=== PATIENT | male | born 2000 | race Two or more races ===

== ENCOUNTER 2023-03-06 02:39 | Emergency (ER) | payer MEDICAID, OTHER ==
[~2023-03-06] VITALS: Ht 180.3 cm; Wt 130.9 kg
[2023-03-06 03:58] LABS: Urine Bacteria NONE SEEN /hpf (None Seen); Urine Blood Negative /uL (Negative); Urine Clarity Clear (Clear); Urine Color Yellow (Yellow); Urine Mucus FEW (None Seen); Urine Protein, UAD 1+ (Negative); Urine Specific Gravity 1.037 (1.001-1.035); Urine WBC 1 /hpf (0 - 3)
[2023-03-06 03:59] LABS: Basophils # (auto) 0.1 10 ^3/uL (0-0.2); Eosinophils # (auto) 0.1 10 ^3/uL (0-0.8); Hematocrit 45.5 % (41.0-53.0); Lymphocytes # (auto) 3.7 10 ^3/uL (0.4-5.4); Mean Corpuscular Hemoglobin 27.5 pg (28.0-32.0); Mean Corpuscular Volume 83.3 fL (80.0-100.0); Monocytes # (auto) 0.7 10 ^3/uL (0-1.3); Monocytes % (auto) 7.4 % (0.0-12.0); Neutrophils # (auto) 4.5 10 ^3/uL (1.6-8.6); Neutrophils % (auto) 49.6 % (37.0-80.0); Nucleated Red Blood Cells % 0.1 %; Red Blood Cells 5.46 10^6/uL (4.5-5.90); Red Cell Distribution Width 13.1 % (11.8-14.3)
[2023-03-06 03:59] LABS: Amphetamine Screen, Urine Neg (NEGATIVE); Barbiturate Scree,Urine Neg (NEGATIVE); Benzodiazephine Screen, Urine Neg (NEGATIVE); Cocaine Screen, Urine Neg (NEGATIVE); Opiate Scree,Urine Neg (NEGATIVE)
[2023-03-06 04:00] LABS: Cannabinoid Screen, Urine Neg (NEGATIVE); Phencyclidine Screen, Urine Neg (NEGATIVE)
[2023-03-06 04:11] LABS: Acetaminophen < 2.0 UG/ML (10.0-20.0)
[2023-03-06 04:12] LABS: Alanine Aminotransferase 129 U/L (7-40); Albumin 4.7 g/dL (3.2-4.8); Alkaline Phosphatase 106 U/L (46-116); Anion Gap 7 (5-15); Aspartate Aminotransferase 45 U/L (13-40); BUN/Creatinine Ratio 8.9 (10.0-20.0); Bilirubin, Total 0.5 mg/dL (0.2-1.0); Blood Urea Nitrogen 8 mg/dL (9-23); Calcium 9.4 mg/dL (8.7-10.4); Carbon Dioxide 26 mmol/L (20-30); Chloride 107 mmol/L (98-107); Glucose 104 mg/dL (74-106); Potassium 3.8 mmol/L (3.5-5.1); Sodium 140 mmol/L (136-145); Total Protein 7.5 g/dL (5.7-8.2)
[2023-03-06 04:13] LABS: Salicylate < 3.0 mg/dL (2.8-20.0)
[2023-03-06 05:15] VITALS: RESP 16; O2SAT 95
[2023-03-06 07:19] VITALS: BP 107/70; PULSE 77; TEMP 97.9; O2SAT 95
== END 2023-03-06 10:11 | disposition home or self-care (01) ==
LOC: ER 02:39
DX: R45.851 Suicidal ideations (principal); F32.9 Major depressive disorder, single episode, unspecified; F20.9 Schizophrenia, unspecified; F41.9 Anxiety disorder, unspecified; Z79.899 Other long term (current) drug therapy
CPT/HCPCS: 36415; 80053; 80307; 80329; 81001; 85025

== ENCOUNTER 2024-08-04 01:11 | Emergency (ER) | payer MEDICAID ==
[~2024-08-04] VITALS: Ht 175.3 cm; Wt 127.0 kg
[2024-08-04 01:42] LABS: Basophils # (auto) 0.1 10 ^3/uL (0-0.2); Basophils % (auto) 0.7 % (0.0-2.0); Eosinophils # (auto) 0.1 10 ^3/uL (0-0.8); Eosinophils % (auto) 1.4 % (0.0-7.0); Hematocrit 40.6 % (41.0-53.0); Hemoglobin 14.1 g/dL (13.5-17.5); Lymphocytes # (auto) 3.7 10 ^3/uL (0.4-5.4); Lymphocytes % (auto) 43.3 % (10.0-50.0); Mean Corpuscular Hgb Conc. 34.8 g/dL (32.0-36.0); Mean Corpuscular Volume 83.4 fL (80.0-100.0); Monocytes # (auto) 0.7 10 ^3/uL (0-1.3); Monocytes % (auto) 8.7 % (0.0-12.0); Neutrophils # (auto) 3.9 10 ^3/uL (1.6-8.6); Neutrophils % (auto) 45.9 % (37.0-80.0); Nucleated Red Blood Cells % 0.1 %; Platelet Count (auto) 299 10^3/uL (140-450); Red Blood Cells 4.87 10^6/uL (4.5-5.90); Red Cell Distribution Width 12.9 % (11.8-14.3); White Blood Cell 8.5 10^3/uL (4.4-10.8)
[2024-08-04 01:45] LABS: Chloride 104 mmol/L (98-107); Potassium 3.9 mmol/L (3.5-5.1); Sodium 139 mmol/L (136-145)
[2024-08-04 01:46] LABS: Anion Gap 9 (5-15); Calcium 9.5 mg/dL (8.7-10.4); Carbon Dioxide 26 mmol/L (20-31)
[2024-08-04 01:51] LABS: BUN/Creatinine Ratio 9.2 (10.0-20.0)
[2024-08-04 02:00] VITALS: O2SAT 95
[2024-08-04 02:04] LABS: Acetaminophen < 2.0 UG/ML (10.0-20.0); Blood Alcohol < 3.0 mg/dL (<10); Blood Urea Nitrogen 7 mg/dL (9-23); Glucose 119 mg/dL (74-106); Salicylate < 3.0 mg/dL (-30)
[2024-08-04 02:12] LABS: Urine Bacteria None Seen /hpf (None Seen)
[2024-08-04 02:21] LABS: Urine Blood Negative /uL (Negative); Urine Clarity Clear (Clear); Urine Color Colorless (Yellow); Urine Protein, UAD Negative (Negative); Urine Specific Gravity 1.004 (1.001-1.035); Urine Squamous Epithelial Cell None Seen /hpf (<5); Urine Urobilinogen Normal (Negative); Urine WBC < 1 /HPF (0-3); Urine pH 6.5 (5.0-9.0)
[2024-08-04 02:25] LABS: Amphetamine Screen, Urine Neg (NEGATIVE); Barbiturate Scree,Urine Neg (NEGATIVE); Benzodiazephine Screen, Urine Neg (NEGATIVE); Cannabinoid Screen, Urine Neg (NEGATIVE); Cocaine Screen, Urine Neg (NEGATIVE); Opiate Scree,Urine Neg (NEGATIVE); Phencyclidine Screen, Urine Neg (NEGATIVE)
--- NOTE | 2024-08-04 02:34 | ED.PDOC ---
History of Present Illness HPI Comments 24 year-old, morbidly obese male, with a history of anxiety, Autism Spectrum Disorder. Bipolar Disorder, Major Depressive Disorder, and Schizoaffective Disorder, is [id number]-ambulance for c/o suicidal ideations and attempt, depression, and auditory hallucinations, today. Per EMS report, patient endorses on attempting to end his life by consuming a small amounts of bleach in addition to taking 8 pills of his Valproate medication following recent depressive and auditory hallucination episode onset, this morning. At time of assessment, patient comments on remorse in attempting to end his life prior to calling EMS and endorses on only current c/o of depression and auditory hallucinations, that includes "voices" endorsing him to end his life. He denies any homicidal ideations, visual hallucinations, chest or abdominal pain, shortness of breath, nausea, or vomiting. Chief Complaint: Overdose Time Seen by MD: 01:20 Reviewed Notes: Nurses Notes, Software Project Manager Notes, Medications, Allergies Allergies: Coded Allergies: NO KNOWN ALLERGIES (Unverified , 03/06/23) Information Source: Patient, Emergency Med Personnel Mode of Arrival: EMS Severity: Moderate Timing: Hours Duration: Since onset Prehospital treatment: None Past Medical History PAST MEDICAL HISTORY: Anxiety, Depression Past Medical History (Other): Autism Spectrum Disorder (ASD) Bipolar Disorder Schizoaffective disorder Morbid Obesity Surgical History: Denies all surgeries Family History Family History: Unknown Social History Smoker: Non-Smoker Alcohol: Denies ETOH Use Drugs: Denies Drug Use Lives In: Home All Other Systems: Reviewed and Negative (Comprehensive systems review obtained and negative except for what is stated in the HPI.) Physical Exam General Appearance: No Apparent Distress, Obese HEENT: Normal ENT Inspection, Pharynx Normal, TMs Normal Neck: Full Range of Motion, Non-Tender, Normal, Normal Inspection Respiratory: Chest Non-Tender, Lungs Clear, No Accessory Muscle Use, No Respiratory Distress, Normal Breath Sounds Cardiovascular: No Edema, No JVD, No Murmur, No Gallop, Normal Peripheral Pulses, Regular Rate/Rhythm Breast Exam: Deferred Gastrointestinal: No Organomegaly, Non Tender, No Pulsatile Mass, Normal Bowel Sounds, Soft Genitalia: Deferred Pelvic: Deferred Rectal: Deferred Extremities: No calf tenderness, Normal capillary refill, Normal inspection, Normal range of motion, Non-tender, No pedal edema Musculoskeletal : Apperance: Normal Neurologic: Alert, utility gelatin maker II-XII nml as Tested, No Motor Deficits, Normal Affect, Normal Mood, No Sensory Deficits Cerebellar Function: Normal Reflexes: Normal Skin: Dry, Normal Color, Warm Lymphatic: No Adenopathy Was a procedure done? Was a procedure done?: No Differential Dx Considerations may include: depression, hopelessness, schizoaffective disorder, suicidal, substance overdose X-Ray, Labs, Meds, VS Vital Signs Date Time Temp Pulse Resp B/P (MAP) Pulse Ox O2 Delivery O2 Flow Rate FiO2 08/05/24 08:32 66 18 98 Room Air* 0 21 08/05/24 08:32 97.8 66 18 125/67 (86) 98 97.8 08/04/24 19:55 97.9 74 16 134/83 (100) 97 97.9 08/04/24 19:30 74 18 97 Room Air* 0 21 08/04/24 14:00 103 20 124/79 (94) 93 08/04/24 13:32 102 08/04/24 12:00 95 16 100/66 (77) 94 08/04/24 11:31 86 08/04/24 10:00 86 18 105/68 (80) 95 08/04/24 08:56 84 08/04/24 08:00 90 18 116/81 (93) 08/04/24 07:39 90 17 116/81 (93) 95 08/04/24 07:30 90 18 92 Nasal Cannula* 4 36 08/04/24 07:30 97.6 90 18 116/81 (93) 92 97.6 08/04/24 05:27 92 13 109/75 (86) 93 08/04/24 05:08 91 08/04/24 04:19 93 11 118/85 (96) 96 08/04/24 03:37 Nasal Cannula* 2 28 08/04/24 03:19 97.8 88 15 138/85 (102) 96 97.8 08/04/24 02:00 95 Nasal Cannula* 4 36 08/04/24 01:14 100 08/04/24 01:11 97.8 108 20 131/79 (96) 96 97.8 Lab Test 08/05/24 15:37 08/04/24 11:10 08/04/24 01:56 08/04/24 01:37 Range/Units Ammonia 29 33 H 37 H 11-32 umol/L Valproic Acid Level 31.4 L 77.0 23.6 L 50-100 ug/mL Urine Color Colorless Yellow Urine Clarity Clear Clear Urine pH 6.5 5.0-9.0 Urine Specific [place] 1.004 1.001-1.035 Urine Protein Negative Negative Urine Ketones Negative Negative Urine Blood Negative Negative /uL Urine Nitrite Negative Negative Urine Bilirubin Negative Negative Urine Urobilinogen Normal Negative mg/dL Urine Leukocyte Esterase Negative Negative /uL Urine RBC <1 0 - 3 /hpf Urine Microscopic WBC < 1 0-3 /HPF Urine Squamous Epithelial Cells None seen <5 /hpf Urine Bacteria None seen None Seen /hpf Urine Glucose Normal Normal mg/dL Urine Opiates Screen Neg NEGATIVE Urine Fentanyl Screen Neg NEGATIVE Urine Barbiturates Screen Neg NEGATIVE Urine Phencyclidine Screen Neg NEGATIVE Urine Amphetamines Screen Neg NEGATIVE Urine Benzodiazepines Screen Neg NEGATIVE Urine Cocaine Screen Neg NEGATIVE Urine Cannabinoids Screen Neg NEGATIVE Test 08/04/24 01:25 Range/Units White Blood Count 8.5 4.4-10.8 10^3/uL Red Blood Count 4.87 4.5-5.90 10^6/uL Hemoglobin 14.1 13.5-17.5 g/dL Hematocrit 40.6 L 41.0-53.0 % Mean Corpuscular Volume 83.4 80.0-100.0 fL Mean Corpuscular Hemoglobin 29.0 28.0-32.0 pg Mean Corpuscular Hemoglobin Concent 34.8 32.0-36.0 g/dL Red Cell Distribution Width 12.9 11.8-14.3 % Platelet Count 299 140-450 10^3/uL Mean Platelet Volume 6.8 L 6.9-10.8 fL Neutrophils (%) (Auto) 45.9 37.0-80.0 % Lymphocytes (%) (Auto) 43.3 10.0-50.0 % Monocytes (%) (Auto) 8.7 0.0-12.0 % Eosinophils (%) (Auto) 1.4 0.0-7.0 % Basophils (%) (Auto) 0.7 0.0-2.0 % Neutrophils # (Auto) 3.9 1.6-8.6 10 ^3/uL Lymphocytes # (Auto) 3.7 0.4-5.4 10 ^3/uL Monocytes # (Auto) 0.7 0-1.3 10 ^3/uL Eosinophils # (Auto) 0.1 0-0.8 10 ^3/uL Basophils # (Auto) 0.1 0-0.2 10 ^3/uL Nucleated Red Blood Cells 0.1 % Sodium Level 139 136-145 mmol/L Potassium Level 3.9 3.5-5.1 mmol/L Chloride Level 104 98-107 mmol/L Carbon Dioxide Level 26 20-31 mmol/L Anion Gap 9 5-15 Blood Urea Nitrogen 7 L 9-23 mg/dL Creatinine 0.76 0.700-1.30 mg/dL Glomerular Filtration Rate Calc 128 >90 mL/min BUN/Creatinine Ratio 9.2 L 10.0-20.0 Serum Glucose 119 H 74-106 mg/dL Calcium Level 9.5 8.7-10.4 mg/dL Salicylates Level < 3.0 -30 mg/dL Acetaminophen Level < 2.0 L 10.0-20.0 UG/ML Plasma/Serum Blood Alcohol < 3.0 <10 mg/dL Time of 1ST Reevaluation: 01:50 Reevaluation 1ST: Unchanged Patient Education/Counseling: Diagnosis, Treatment Family Education/Counseling: No Family Present Additional Information Previous visit documents reviewed: March 06, 2023 encounter for suicidal ideation The following tests were ordered, and results were reviewed by me: EKG, UA, Salicylate, CBC, acetaminophen, blood alcohol, drug screen, BMP Additional Information was gathered from interviewing the following independent historians: EMS I reviewed and agreed with the following test results read by other providers: n/a I discussed treatment and results with medical personnel and: Patient Departure 1 Departure Time of Disposition: 05:32 (Patient presenting with suicide ideation. Place patient on observation pending psychiatric evaluation) Impression: Primary Impression: Suicide ideation Disposition: 30 STILL A PATIENT Condition: Serious Critical Care Note Critical Care Time?: Yes Critical care comment: Suicide ideation Authorized and Performed by: Nikia Lord MD Total critical care time: Approximately 39 minutes Due to a high probability of clinically significant, life threatening deterioration, the patient required my highest level of preparedness to intervene emergently and I personally spent this critical care time directly and personally managing the patient. This critical care time included obtaining a history; examining the patient; pulse oximetry; ordering and review of studies; arranging urgent treatment with development of a management plan; evaluation of patient's response to treatment; frequent reassessment; and, discussions with other providers. This critical care time was performed to assess and manage the high probability of imminent, life-threatening deterioration that could result in multi-organ failure. It was exclusive of separately billable procedures and treating other patients and teaching time. Please see my other sections and the rest of the note for further information on patient assessment and treatment. Stability Stability form required: No Heart Score Heart Score: Heart Score Response (Comments) Value History N/A 0 EKG N/A 0 Age N/A 0 Risk Factors N/A 0 Troponin N/A 0 Total 0 I personally scribed for NIKIA LORD MD ([email or web address]) on 08/04/24 at 02:34. Electronically submitted by Zeeshan Yanez ([email or web address]). NIKIA LORD MD Aug 04, 2024 02:34
--- NOTE | 2024-08-04 06:34 | DVHINCON2 ---
Date of Service if different f: Aug 04, 2024 Time of Service: 06:11 Consult Consult Note PSYCHIATRY ED NEW CONSULT HPI: 24 yo M pt with PPH of depression, ASD, bipolar, and anxiety and PMH of seizure d/o presents to ED BIBA for safety, psychiatric stabilization and possible med initiation/optimization in setting of SA via intentional drug OD. Psychiatry consulted for safety evaluation and recommendations in context of current pre sentation Per pt, reports hx of chronic depression often mixed with anxiety, over past several weeks experiencing worsening depressed mood, hopelessness, helplessness, negative thoughts, isolation, loss of interest, decreased energy, difficulty with concentration, increased sleep/appetite, low self-esteem/self worth, anhedonia, amotivation and anxiety symptoms to include excessive worry, rumination, restlessness, racing/intrusive thoughts, feeling tensed/nervous, and irritability although some symptoms appears chronic in nature. Also intermittent SI that are fleeting but worsening over past several days resulting in SA via intention OD of Depakote 250 mg x 8 with small amount of bleach. Pt also reports CAH to hurt self although denies AH currently. Reports primary stress as recent relationship strains with few close friends and ongoing struggles with chronic mental illness and feeling as if "i have no purpose in life". No overt manic, psychotic, cognitive, dissociative phenomena, panic, or somatic symptoms noted. Pt currently does have psychiatrist/therapist out in community. Currently rx'd depakote 250 mg bid. Denies any hx of med noncompliance or self medicating mood symptoms with ETOH, THC or IDU . Never , no children, unemployed, lives with parent, HS grad, no legal issues, some support system noted (immediate family). Unknown trauma hx. Unknown FH. PMH significant for seizure d/o - on keppra tx, [facility] Hx of multiple suicide attempts/SIB/PSG resulting in several prior psych hospitalizations/5150, last admission several months ago for SI. Denies history of violence, unprovoked aggression, or assaultive behaviors. Does not have access to firearms. Currently endorses passive SI. Denies HI/AVH MSE: General Appearance/Behavior: Alert and awake; appears stated age, obese, fair grooming and hygiene; calm and cooperative, fair eye contact, no PMA/PMR Speech: coherent, rrr Thought Process: linear, logical, concrete Thought Content: Abnormal Thoughts and Perceptions: None Homicidality / Violent Thoughts: None Suicidality: passive SI Hallucinations: denies AVH presently Delusions: denies paranoia, persecutory, or grandiose delusions Obsessions /compulsions : None Judgment and Insight: poor/questionable judgment with fair insight Mood & Affect: "depressed" with mood-congruent, constricted/restricted, appropriate Orientation: oriented to person, place, time Attention/Concentration: appears intact Memory: grossly intact Language: no unusual or inappropriate language Assessment: 24 yo M pt with PPH of depression, ASD, bipolar, and anxiety and PMH of seizure d/o presents to ED BIBA for safety, psychiatric stabilization and possible med initiation/optimization in setting of SA via intentional drug OD of Depakote 250 mg x 8 with small amount of bleach Pt is currently expressing some SI with moderate interference in daily functioning in setting of several acute/chronic life stressors (see hpi). Limited protective factors presently. Hx of SIB/SA and poor judgment/ impulsivity resulting in prior psych hospitalizations. Pt agrees to talk with staff instead of acting on any suicidal feelings while in ED. Pt medically cleared. Thus, acute risk is moderate and hence is appropriate for inpatient psychiatry admission. Pt will benefit from inpatient psychiatric admission for safety, psychiatric stabilization and possible medication initiation/optimization. Pt willing to transfer to inpt psych hospitalization voluntarily but recommend 5150 hold for DTS Primary Diagnosis: Major Depressive disorder, moderate, recurrent, w/PF. ASD, hx Recommend 5150 DTS hold and transfer to inpt psych facility for higher level of care per pts request 1:1 sitter is recommended Recommend HOLDING of outpt med regimen in setting of recent OD for next 72 hrs Reconsult telepsych services if pt requests to be discharged from ED prior to transfer/upon hold expiration Pt verbalized understanding and is receptive to above tx plan This case was discussed with ED nurse/provider and all parties in agreement with above tx plan Ray Medellin MD Plan discussed with: Patient RAY MEDELLIN MD Aug 04, 2024 06:34
[2024-08-04 07:30] VITALS: PULSE 90; RESP 18; O2SAT 92
--- NOTE | 2024-08-04 10:02 | ECG ---
[facility] Test Date: 2024-08-04 Test Time: 05:08:04 Pat Name: GILSON SOTELOODepartment: ED Room: Gender: Cloth Mender: DEMETRI : 2000 Requested By: NIKIA MONROE Order Number: [id number] Reading MD: Ap Pérez Measurements Intervals [place] Rate: 91 P: 53 [place]: 148 QRS: 81 QRSD: 99 T: 34 QT: 367 QTc: 452 Interpretive Statements Sinus rhythm Electronically Signed On 08-07-2024 13:21:09 PDT by Ap Pérez Please click the below link to view image of tracing.
--- NOTE | 2024-08-04 11:32 | ECG ---
[facility] Test Date: 2024-08-04 Test Time: 11:31:14 Pat Name: GILSON SOTELOODepartment: ED Room: Gender: M Ballistics Expert: PENNIE : 2000 Requested By: STEPHANIA JOLLY Order Number: [id number] Reading MD: Ap Pérez Measurements Intervals [place] Rate: 86 P: 44 [place]: 139 QRS: 89 QRSD: 90 T: -4 QT: 373 QTc: 446 Interpretive Statements Sinus rhythm Low voltage, precordial leads Borderline T abnormalities, diffuse leads Electronically Signed On 08-07-2024 13:22:12 PDT by Ap Pérez Please click the below link to view image of tracing.
--- NOTE | 2024-08-04 13:32 | ECG ---
[facility] Test Date: 2024-08-04 Test Time: 01:14:15 Pat Name: GILSON SOTELOODepartment: ED Room: Gender: Certified First Assistant: DEMETRI : 2000 Requested By: STEPHANIA JOLLY Order Number: [id number] Reading MD: Ap Pérez Measurements Intervals [place] Rate: 100 P: 55 [place]: 145 QRS: 75 QRSD: 92 T: 31 QT: 343 QTc: 443 Interpretive Statements Sinus tachycardia Electronically Signed On 08-07-2024 13:21:01 PDT by Ap Pérez Please click the below link to view image of tracing.
[2024-08-04 19:30] VITALS: PULSE 74; RESP 18; O2SAT 97
[2024-08-05] MEDS: ACETAMINOPHEN 325 MG TAB PO ONE
[2024-08-05 08:32] VITALS: BP 125/67; PULSE 66; RESP 18; TEMP 97.8; O2SAT 98
== END 2024-08-05 15:50 | disposition left against medical advice (07) ==
LOC: EDBD 01:11 → ER 01:11
DX: R45.851 Suicidal ideations (principal); F41.9 Anxiety disorder, unspecified; F31.9 Bipolar disorder, unspecified; F25.9 Schizoaffective disorder, unspecified; E66.01 Morbid (severe) obesity due to excess calories; F84.0 Autistic disorder; Z68.41 Body mass index [BMI] 40.0-44.9, adult; Z79.899 Other long term (current) drug therapy
CPT/HCPCS: 36415; 80048; 80164; 80307; 80320; 80329; 81001; 82140; 85025; 93005